=== PATIENT | male | born 1945 | race Caucasian/White ===

== ENCOUNTER 2022-07-07 14:23 | Inpatient (IN) | payer MEDICARE ==
[~2022-07-07] VITALS: Ht 165.1 cm; Wt 59.9 kg
--- NOTE | 2022-07-07 15:00 | NUR ---
Patient came in to the er sent by Dr. ardon for psych admission, danger to self hearing voices. On room air, breathing evenly and unlabored. Kept comfortbale, will continue to monitor accordingly.
[2022-07-07 15:44] LABS: BASOPHILS % (AUTO) 0.3 % (0.0-2.0); EOSINOPHILS % (AUTO) 0.2 % (0.0-6.0); HEMATOCRIT 45 % (39-51); LYMPHOCYTES # (AUTO) 0.8 K/uL (0.8-4.8); MEAN CORPUSCULAR HGB CONC 33 g/dl (31.0-36.0); MEAN CORPUSCULAR VOLUME 86 fL (80-96); MONOCYTES # (AUTO) 0.5 K/uL (0.1-1.30); MONOCYTES % (AUTO) 6.3 % (2.0-12.0); NEUTROPHILS % (AUTO) 83.2 % (43.0-81.0); PLATELET COUNT (AUTO) 247 K/uL (150-450); RED BLOOD CELL COUNT(AUTO) 5.24 MIL/uL (4.5-6.0); WHITE BLOOD COUNT (AUTO) 8.4 K/uL (4.3-11.0)
--- NOTE | 2022-07-07 15:52 | NUR ---
MOVE SHEET SUBMITTED.
[2022-07-07 15:56] LABS: CALCIUM, SERUM 9.3 mg/dL (8.5-10.1); CARBON DIOXIDE 27 mmol/L (21-32); CHLORIDE 105 mmol/L (98-107); CREATININE 1.1 mg/dL (0.6-1.3); GLUCOSE 130 mg/dL (74-106); POTASSIUM 4.4 mmol/L (3.5-5.1); SODIUM SERUM 138 mmol/L (136-145); UREA NITROGEN, BLOOD 15 mg/dL (7-18)
[2022-07-07 15:56] LABS: BILIRUBIN,URINE 1+ (NEGATIVE); COLOR,URINE YELLOW (YELLOW); LEUKOCYTE ESTERASE ,URINE NEGATIVE (NEGATIVE); NITRITE, URINE NEGATIVE (NEGATIVE); PROTEIN,URINE NEGATIVE (NEGATIVE); UGLUCOSE NEGATIVE (NEGATIVE); UROBILINOGEN,URINE 0.2 EU/dL (0.2)
[2022-07-07] MEDS ORDERED: OLANZAPINE 10 MG VIAL IM ONE ×2 (16:00→16:05)
[2022-07-07 16:07] LABS: ALANINE AMINOTRANSFERASE 37 U/L (12-78); ALBUMIN 4.1 g/dL (3.4-5.0); ALCOHOL, BLOOD < 3 mg/dL (0-0); ALKALINE PHOSPHATASE 76 U/L (46-116); ASPARTATE AMINOTRANSFERASE 22 U/L (15-37); BILIRUBIN,DIRECT 0.2 mg/dL (0.0-0.2); BILIRUBIN,TOTAL 0.4 mg/dL (0.2-1.0); TOTAL PROTEIN, SERUM 7.3 g/dL (6.4-8.2)
[2022-07-07 16:09] LABS: BACTERIA,URINE Rare /HPF (None Seen); RBC,URINE 0-2 /HPF (0-2); SQUAMOUS EPITHELIAL CELL,UR Few /HPF (None Seen); WBC,URINE 0-2 /HPF (0-3)
[2022-07-07 16:11] LABS: ACETAMINOPHEN 0 ug/ml (10-30)
--- NOTE | 2022-07-07 16:25 | NUR ---
COVID SWAB TAKEN
[2022-07-07] MEDS ORDERED: AMLO-212 PO (17:07)
[2022-07-07] MEDS ORDERED: LAMO200T10 PO (17:07)
[2022-07-07] MEDS ORDERED: LORA-259 PO (17:07)
--- NOTE | 2022-07-07 18:15 | NUR ---
BED GIVEN 212-B
--- NOTE | 2022-07-07 18:37 | NUR ---
MELISSA CALLED ON HER WAY.
[2022-07-07] MEDS ORDERED: LORAZEPAM 1 MG TABLET PO ONE (19:00)
[2022-07-07] MEDS ORDERED: LORAZEPAM 0.5 MG TABLET ONE (19:16)
--- NOTE | 2022-07-07 21:02 | NUR ---
REPORT GIVEN TO PATRICIA AT [facility]
--- NOTE | 2022-07-07 21:20 | NUR ---
TRANSFERRED TO 212
--- NOTE | 2022-07-07 21:30 | NUR ---
GPS ADMISSION NOTE, RECEIVED PATIENT FROM HOME / [facility] PATIENT ARRIVED ON THIS UNIT AT 2130 VIA STRETCHER WITH 2 RES HABILITATION ASSISTANT ESCORTS. PATIENT ADMITTED ON A 5150 HOLD FOR GD. PER HOLD PATIENT WAS BROUGHT IN TO [facility] BY HIS SON DUE TO THIS PATIENT HAVING INCREASED PARANOIA. PATIENT REPORTS THAT HE HAS BEEN PARANOID FOR TH LAST 10 DAYS. PATIENT THINKS HE IS GOING TO GET ARRESTED AND THAT MAKES HIM HAVE THOUGHTS OF DYING. PATIENT HAS NO VIABLE PLAN FOR SELF CARE AT THIS TIME. THE 5150 WAS REVIEWED AND THE DOCUMENTATION IN THE 5150 HOLD APPEARS TO REFLECT THE PRESENTATION OF THE PATIENT. UPON FACE TO FACE ASSESSMENT PATIENT IS NOTED TO BEING ANXIOUS, DISHEVELED, DISORGANIZED, PARANOID, COOPERATIVE, AND NEEDS REDIRECTION. PATIENT IS CURRENTLY LYING IN BED AWAKE, HAS NO S/S OR COMPLAINTS OF PAIN. PATIENT IS DISPLAYING NO S/S OF APPARENT DISTRESS. PATIENT BREATHING IS UNLABORED WITH EQUAL RISE AND FALL OF THE CHEST. PATIENT IS ALERT AND ORIENTATED X 3 ON ROOM AIR. PATIENT ASSISTED WITH TURING AND REPOSITIONING Q2HR AND PRN FOR COMFORT AND CIRCULATION. PATIENT HAS NO NEEDS AT THIS TIME. PATIENT DENIES SUICIDE IDEATIONS AND HOMICIDAL IDEATIONS AT THIS TIME. PATIENT SIGNED PAPER WORK. PATIENT ADVISED OF HIS HOLD AND PATIENT RIGHTS BOOKLET GIVEN. PATIENT IS UNDER THE PSYCHIATRIC CARE OF DR. SHAW AND THE MEDICAL CARE OF DR STEPHEN. PATIENT BELONGINGS WERE INVENTORIED AND CHECKED FOR CONTRABAND. ALL CONTRABAND REMOVED AND STORED IN PATIENT HALLWAY LOCKER. PATIENT ADVANCED DIRECTIVES PREFERENCE, IMMUNIZATIONS QUESTIONER, NECESSARY PAPERWORK COMPLETED. PATIENT ALLOWED SKIN ASSESSMENT. PATIENT ORIENTATED TO ROOM, FLOOR, AND STAFF WITH ALL QUESTIONS ANSWERED. PATIENT EDUCATED ON THE USE OF THE CALL RAYGOZA. PATIENT BED SIDE RAILS ARE UP X 2 FOR SAFETY. PATIENT BED IS LOCKED, LOW AND I WILL CONTINUE TO MONITOR THIS PATIENT Q 15 MIN WITH THE HELP OF STAFF TO MAINTAIN SAFETY.
[2022-07-07] MEDS ORDERED: ACETAMINOPHEN 325 MG TABLET PO PRN (22:30)
[2022-07-07] MEDS ORDERED: MAGNESIUM HYDROXIDE 30 ML UDC PO PRN (22:30)
[2022-07-07] MEDS ORDERED: BLOOD SUGAR DIAGNOSTIC 1 EACH STRIP IN ONE (22:30)
[2022-07-07] MEDS ORDERED: MAG HYDROX/AL HYDROX/SIMETH 30 ML UDC PO PRN (22:30)
[2022-07-07] MEDS: TEMAZEPAM 7.5 MG CAPSULE PO PRN (23:02)
--- NOTE | 2022-07-07 23:02 | NUR ---
GPS RN NOTE, PATIENT HAS A COMPLAINT OF NOT BEING ABLE TO SLEEP AND IS REQUESTING RESTORIL AT THIS TIME. PATIENT VITAL SIGNS ARE STABLE. GAVE RESTORIL 7.5MG PO HS PRN ORDERED. WILL REASSESS FOR INSOMNIA AND I WILL CONTINUE TO MONITOR THIS PATIENT WITH THE HELP OF STAFF.
[2022-07-08] MEDS: LORAZEPAM 0.5 MG TABLET PO PRN ×2 (01:33→23:17)
--- NOTE | 2022-07-08 01:33 | NUR ---
GPS RN NOTE, PATIENT HAS A COMPLAINT OF FEELING ANXIOUS AND IS REQUESTING ATIVAN AT THIS TIME. PATIENT VITAL SIGNS ARE STABLE. GAVE ATIVAN 0.5MG PO Q6HR PRN ORDERED. WILL REASSESS FOR ANXIETY AND I WILL CONTINUE TO MONITOR THIS PATIENT WITH THE HELP OF STAFF.
[2022-07-08 08:00] VITALS: BP 130/97
--- NOTE | 2022-07-08 08:33 | NUR ---
LUCILA Clinical Note: Pt placed on a 5150 hold for GD. Pt brought to the hospital because he has been paranoid at home. Patient currently resides at [address] [place] [id number]; ([phone]). Patient stated he is unsure if he will return back home. He might be staying at son's house. LUCILA will contact pt's son Gurjit ([phone]) to gather collateral and discuss treatment/discharge plan. LUCILA will work with the family, MD , and pt to help coordinate appropriate discharge.
--- NOTE | 2022-07-08 08:33 | NUR ---
LUCILA Initial Discharge Plan: Patient currently resides at [address] [place] [address]; ([phone]). Patient stated he is unsure if he will return back home. He might be staying at son's house. LUCILA will contact pt's son Gurjit ([phone]) to gather collateral and discuss treatment/discharge plan. LUCILA will work with the family, MD , and pt to help coordinate appropriate discharge.
--- NOTE | 2022-07-08 08:34 | NUR ---
Treatment Plan: Pt refused to sign and was suspicious.
[2022-07-08] MEDS: AMLODIPINE BESYLATE 5 MG TABLET PO SCH (08:37)
--- NOTE | 2022-07-08 10:57 | NUR ---
Social Work Note/Substance Abuse Intervention: Patient was provided with a brief substance abuse intervention and referred to [facility] ([phone]), [facility] ([phone]), and [facility] ([phone]) for drinking alcohol.
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
--- NOTE | 2022-07-08 12:05 | NUR ---
RN Notes: Received pt. asleep in bed, breathing is even and unlabored. Ate 100% for breakfast and compliant on med. Pt. is quiet and isolates in the room. Encouraged to verbalize feelings and motivated to attend group activity. Pt. isolates in the room and no social interactions. Needs attended and will continue to monitor for safety.
[2022-07-08] MEDS: LamoTRIgine 100 MG TABLET PO SCH (12:25)
[2022-07-08] MEDS: OLANZAPINE 2.5 MG TABLET PO SCH ×2 (12:33→17:00)
[2022-07-08 16:00] VITALS: BP 112/71
--- NOTE | 2022-07-08 19:57 | NUR ---
RN NOTES ; RECEIVED PATIENT IN BED RESTING COMFORTABLY. A/OX3. NO S/SX OF ACUTE DISTRESS NOTED. PATIENT IS CALM UPON APPROACH, COOPERATIVE TO CARE, GUARDED, ISOLATIVE, SAFETY PRECAUTIONS PROVIDED, VERBALIZATION OF FEELINGS ENCOURAGED AND MOTIVATED TO ATTEND GROUP ACTIVITY ,SAFETY PRECAUTIONS MAINTAINED. WILL CONTINUE TO MONITOR Q15MIN ROUNDS FOR SAFETY AND BEHAVIOR.
[2022-07-08 20:00] VITALS: BP 130/96
[2022-07-08] MEDS ORDERED: OLANZAPINE 5 MG TABLET PO SCH (22:00)
--- NOTE | 2022-07-08 23:20 | NUR ---
RN NOTES: ANXIETY PT. C/O FEELING ANXIOUS,RESTLESS ,PRN ATIVAN 0.5 MG PO GIVEN PER PT. REQUEST, WILL CONTINUE TO MONITOR.
--- NOTE | 2022-07-09 05:27 | NUR ---
RN NOTES: PT. RESTING IN HIS ROOM AND 7 HOURS OF SLEEP, NO ACUTE DISTRESS NOTED, ATIVAN WAS AFFECTIVE , ENCOURAGED PT. TO VERBALIZED ANY FEELING OR CONCERN, ALL NEEDS ATTENDED AND ANTICIPATED WILL CONTINUE TO MONITOR.
[2022-07-09 08:00] VITALS: BP 151/90
[2022-07-09] MEDS: LamoTRIgine 100 MG TABLET PO SCH (08:07)
[2022-07-09] MEDS: OLANZAPINE 2.5 MG TABLET PO SCH ×2 (08:07→16:32)
[2022-07-09] MEDS: AMLODIPINE BESYLATE 5 MG TABLET PO SCH (08:08)
--- NOTE | 2022-07-09 11:01 | NUR ---
Dr. Poole and the mortgage underwriter spoke to the pt. the he is suicidal and will do any means. Pt. was encouraged to ask the staffs for feel like harming himself and he agree. Dr. Poole ordered line of sight.
[2022-07-09 16:00] VITALS: BP 138/94
--- NOTE | 2022-07-09 20:10 | NUR ---
ARCHAEOLOGIST NOTES: PATIENT'S SON CRESENCIO AT BEDSIDE. PATIENT CALMLY TALKING TO HIM. ALL SAFETY MEASURES IN PLACE. WILL CONTINUE TO MONITOR FOR SAFETY AND BEHAVIOR.
[2022-07-09 20:40] VITALS: BP 160/100
--- NOTE | 2022-07-09 21:00 | NUR ---
FRONT DESK SPECIALIST NOTES: PATIENT STATED THAT HE HAS SUICIDAL IDEATION BUT DOES NOT HAVE PLANS TO ACT ON IT. ENCOURAGED PATIENT TO VERBALIZE HIS FEELINGS AND APPROACH STAFF WHEN HE FEELS LIKE HARMING HIMSELF. PATIENT AGREES TO DO SO. ALL SAFETY MEASURES IN PLACE. WILL CONTINUE MONITOR Q15 MINS FOR SAFETY AND BEHAVIOR.
[2022-07-09] MEDS: OLANZAPINE 5 MG TABLET PO SCH (21:41)
[2022-07-09] MEDS: LORAZEPAM 0.5 MG TABLET PO PRN (23:14)
--- NOTE | 2022-07-10 00:15 | NUR ---
RESERVATIONS SALES SUPERVISOR NOTES: GIVEN ATIVAN 0.5 MG PER PATIENTS REQUEST FOR ANXIETY. EFFECTIVE. PATIENT SLEEPING AT THIS TIME. CALM. EASILY AROUSABLE. WILL CONTINUE TO MONITOR FOR SAFETY AND BEHAVIOR.
--- NOTE | 2022-07-10 06:42 | NUR ---
CLINICAL OB NOTES: PATIENT SLEEPING IN BED. EASILY AROUSABLE. BREATHING EVEN AND UNLABORED. NO ACUTE DISTRESS NOTED. A/O X3. PATIENT QUIET AND REMAINED IN HIS ROOM ALL NIGHT. SLEPT WELL. ENCOURAGED TO VERBALIZE FEELINGS AND EMOTIONS. ALL NEEDS ANTICIPATED AND ATTENDED. MONITORED [id number] FOR SAFETY AND BEHAVIOR.
[2022-07-10 07:13] LABS: BASOPHILS % (AUTO) 0.5 % (0.0-2.0); EOSINOPHILS % (AUTO) 1.2 % (0.0-6.0); HEMATOCRIT 43 % (39-51); HEMOGLOBIN 14.3 g/dL (13.5-17.5); LYMPHOCYTES # (AUTO) 1.3 K/uL (0.8-4.8); LYMPHOCYTES % (AUTO) 18.6 % (20.0-44.0); MEAN CORPUSCULAR HGB CONC 34 g/dl (31.0-36.0); MEAN CORPUSCULAR VOLUME 86 fL (80-96); MONOCYTES # (AUTO) 0.5 K/uL (0.1-1.30); MONOCYTES % (AUTO) 7.5 % (2.0-12.0); NEUTROPHILS # (AUTO) 5.2 K/uL (1.8-8.9); NEUTROPHILS % (AUTO) 72.2 % (43.0-81.0); PLATELET COUNT (AUTO) 239 K/uL (150-450); RED BLOOD CELL COUNT(AUTO) 4.98 MIL/uL (4.5-6.0); WHITE BLOOD COUNT (AUTO) 7.2 K/uL (4.3-11.0)
[2022-07-10 07:51] LABS: CREATININE 1.2 mg/dL (0.6-1.3); POTASSIUM 4.2 mmol/L (3.5-5.1)
[2022-07-10 08:00] VITALS: BP 120/94
[2022-07-10] MEDS: AMLODIPINE BESYLATE 5 MG TABLET PO SCH (08:12)
[2022-07-10] MEDS: LamoTRIgine 100 MG TABLET PO SCH (08:12)
[2022-07-10] MEDS: OLANZAPINE 2.5 MG TABLET PO SCH ×2 (08:12→16:08)
--- NOTE | 2022-07-10 09:08 | NUR ---
RN Notes: Received pt. awake in the room, responsive to staffs, suspicious, quiet and with depressed mood. Pt. ate 25% for breakfast and compliant on meds. Pt. stated he is suicidal but no specific plan at this time and said he is depressed. Pt. was encouraged to verbalize feelings and encouraged to call staffs if feels like hurting himself and agreed. Pt. was monitored frequently for safety and needs attended.
[2022-07-10 16:00] VITALS: BP 116/86
--- NOTE | 2022-07-10 19:20 | NUR ---
GPS RN NOTES RECEIVED LAYING OM HIS BED INSIDE THE ROOM.FAMILY MEMBERS AT BEDSIDE.DENIES SUICIDAL IDEATION.CLOSE MONITORING INITIATED.CALM ABLE TO VERBALIZED NEEDS.AMBULATE WITH STEADY GAIT.MED COMPLIANT.WILL CONTINUE TO MONITOR BEHAVIOR AND MANAGE ACCORDINGLY.
[2022-07-10 20:00] VITALS: BP 128/91
[2022-07-10] MEDS: OLANZAPINE 5 MG TABLET PO SCH (20:48)
--- NOTE | 2022-07-11 | NUR ---
GPS RN NOTES AWAKE,OFFERED SLEEPING PILL BUT REFUSED,COMMENTED " IM OKAY "
[2022-07-11] MEDS: LORAZEPAM 0.5 MG TABLET PO PRN ×3 (06:07→21:23)
--- NOTE | 2022-07-11 06:07 | NUR ---
GPS RN NOTES AWAKE,WANDERING,APPEARS ANXIOUS,ATIVAN 0.5MG PO GIVEN ORDERED.ENCOURAGED TO STAY IN HIS ROOM FOR SAFETY
[2022-07-11] MEDS: OLANZAPINE 2.5 MG TABLET PO SCH ×2 (07:50→17:24)
[2022-07-11] MEDS: AMLODIPINE BESYLATE 5 MG TABLET PO SCH (07:50)
[2022-07-11] MEDS: LamoTRIgine 100 MG TABLET PO SCH (07:50)
[2022-07-11 08:00] VITALS: BP 124/86
[2022-07-11 16:00] VITALS: BP 101/75
[2022-07-11 20:20] VITALS: BP 115/77
[2022-07-11] MEDS: OLANZAPINE 5 MG TABLET PO SCH (21:22)
[2022-07-12] MEDS: TEMAZEPAM 7.5 MG CAPSULE PO PRN ×2 (00:11→21:24)
[2022-07-12 08:00] VITALS: BP 143/78
[2022-07-12] MEDS: AMLODIPINE BESYLATE 5 MG TABLET PO SCH (09:00)
[2022-07-12] MEDS: OLANZAPINE 2.5 MG TABLET PO SCH (09:00)
[2022-07-12] MEDS: LamoTRIgine 100 MG TABLET PO SCH (09:00)
--- NOTE | 2022-07-12 12:54 | NUR ---
SNF Referral: SW sent clinicals to [facility] ([phone]) for placement. SW sent H & P, progress notes, and medication list.
[2022-07-12] MEDS: risperiDONE-M 0.5 MG TAB.RAPDIS PO SCH ×2 (12:59→16:17)
--- NOTE | 2022-07-12 14:19 | NUR ---
RN-CO: FOLLOWED UP CT W/O CONTRAST.
--- NOTE | 2022-07-12 15:34 | NUR ---
RN-CO: OUT FOR CT W/O CONTRAST W/ DIGITAL DIRECTOR.
[2022-07-12 16:00] VITALS: BP 130/89
[2022-07-12 20:41] VITALS: BP 153/89
[2022-07-12] MEDS: OLANZAPINE 5 MG TABLET PO SCH (21:23)
--- NOTE | 2022-07-12 21:26 | NUR ---
Pt unable to sleep. C/O insomnia. Least restrictive measures ineffective. Restoril 7.5 mg po prn given as ordered. Will continue to monitor.
--- NOTE | 2022-07-12 22:48 | NUR ---
Post 1 hr Restoril effective. Pt asleep in bed easy to arouse. Bed at low position and bed alarm on. Frequent visual check done for safety. Will continue to monitor. Will endorse to next shift.
--- NOTE | 2022-07-13 07:25 | NUR ---
GPS RN OPENING NOTE RECEIVED PT ASLEEP IN BED, EASILY AROUSED. PT IS A/O X3, ABLE TO MAKE NEEDS KNOWN. PT ON ROOM AIR, TOLERATING WELL. NO SOB NOTED. NOT IN ANY SIGN OF RESPIRATORY DISTRESS. PT IS CALM WITH NO EPISODES OF SUICIDAL THOUGHTS AT THIS TIME. SAFETY MEASURES IN PLACE: BED IN LOWEST AND LOCKED POSITION, SIDE RAILS UP, BED ALARM ON, AND CALL LIGHT WITHIN EASY REACH. WILL CONTINUE TO MONITOR PT.
[2022-07-13 08:00] VITALS: BP 129/85
[2022-07-13] MEDS: LamoTRIgine 100 MG TABLET PO SCH ×2 (08:41→08:52)
[2022-07-13] MEDS: risperiDONE-M 0.5 MG TAB.RAPDIS PO SCH ×5 (08:41→17:00)
[2022-07-13] MEDS: AMLODIPINE BESYLATE 5 MG TABLET PO SCH ×2 (08:42→08:52)
--- NOTE | 2022-07-13 08:54 | NUR ---
RN NOTE PT REFUSED ALL MEDICATIONS SCHEDULED AT 0900. PT AGREE TO TAKE THE MEDICATIONS AT FIRST BUT WHEN PREPARED MEDICATIONS AND ATTEMPTED TO GIVE, PT CHANGED HIS MIND AND REFUSED ALL MEDICATIONS. PER PT, "I JUST DON'T WANT TO TAKE IT ANYMORE".
--- NOTE | 2022-07-13 13:41 | NUR ---
RN NOTE PT REFUSED RISPERDAL-M SCHEDULED AT 0. PT AGREE TO TAKE THE MEDICATIONS AT FIRST BUT WHEN PREPARED MEDICATIONS AND ATTEMPTED TO GIVE, PT CHANGED HIS MIND AND REFUSED ALL MEDICATIONS. PER PT, "I JUST DON'T WANT TO TAKE IT ANYMORE". Addendum: 07/13/22 at 1342 by PAVAN SWEENEY RN DELETE NOTE ENTRY
--- NOTE | 2022-07-13 13:42 | NUR ---
RN NOTE PT REFUSED HIS RISPERDAL-M MEDICATION SCHEDULED AT 1330. EXPLAINED RISK AND BENEFITS, PT STILL REFUSED. PT STATE, "I'M NOT GOING TO TAKE THAT".
--- NOTE | 2022-07-13 13:58 | NUR ---
Court Notification: LUCILA contacted pt's son Gurjit ([phone]) for 0940 hearing.
--- NOTE | 2022-07-13 13:59 | NUR ---
Court Hearing: Patient's court hearing for 3190 was today and it was upheld for GD.
--- NOTE | 2022-07-13 14:01 | NUR ---
SNF Contact: SW received a call from Pamela hennessy from [facility] ([phone]) and stated pt is accepted.
[2022-07-13 16:36] VITALS: BP 164/90
--- NOTE | 2022-07-13 17:04 | NUR ---
RN NOTE PT REFUSED HIS RISPERDAL-M MEDICATION SCHEDULED AT 1700. EXPLAINED RISK AND BENEFITS, PT STILL REFUSED. PT STATED, "I HAVE TO MUCH DRUGS IN MY SYSTEM".
[2022-07-13 20:48] VITALS: BP 150/98
[2022-07-13] MEDS: OLANZAPINE 5 MG TABLET PO SCH (21:09)
[2022-07-13] MEDS: TEMAZEPAM 7.5 MG CAPSULE PO PRN (21:14)
[2022-07-14 08:00] VITALS: BP 130/98
[2022-07-14] MEDS: risperiDONE-M 0.5 MG TAB.RAPDIS PO SCH ×2 (09:00→16:46)
[2022-07-14] MEDS: LamoTRIgine 100 MG TABLET PO SCH (09:00)
[2022-07-14] MEDS: AMLODIPINE BESYLATE 5 MG TABLET PO SCH (09:00)
--- NOTE | 2022-07-14 09:00 | NUR ---
Patient alert ,verbally responsive ,poor insight ,poor judgment easily irritable and anxious will continue to monitor for safety q15 minutes.Patient refused all Meds ,encourage still refused will continue to monitor for safety ,patient on line of sight .
--- NOTE | 2022-07-14 09:00 | NUR ---
RN- NOTES PATIENT REFUSED ALL 0900 MEDICATIONS. EDUCATED ON RISKS AND BENEFITS. PATIENT STATED, "NOTHING I TAKE IS GOING TO HELP ME AND I JUST CAN'T DO IT." WILL CONTINUE TO MONITOR FOR SAFETY AND BEHAVIOR.
[2022-07-14] MEDS ORDERED: OLANZAPINE 10 MG VIAL IM STA (14:04)
--- NOTE | 2022-07-14 14:09 | NUR ---
Patient pacing ,paranoid and suspicious . notified with new order Zyprexa 10mg IM X1 Stat .Patient voluntarily accept injection .
[2022-07-14 16:00] VITALS: BP 112/80
--- NOTE | 2022-07-14 18:51 | NUR ---
RN-NOTES PATIENT RECEIVED ASLEEP IN BED, BREATHING EVEN AND UNLABORED WITH NO S/S OF DISTRESS. PATIENT IS GUARDED, ANXIOUS, DEPRESSED, BUT COOPERATIVE WITH STAFF. PATIENT AGREED TO INJECTION PER MD ORDERS AND STATES, "I DON'T FEEL GOOD AT ALL AND I THINK NOTHING WILL HELP ME FEEL BETTER THAT THIS POINT." PATIENT VERBALIZES FEELINGS OF SUICIDAL IDEATION AND IS ON LINE OF SIGHT ORDERS. PATIENT REFUSED ALL MEDICATIONS. WILL CONTINUE TO MONITOR FOR SAFETY AND BEHAVIOR.
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
--- NOTE | 2022-07-14 19:20 | NUR ---
RN notes Code leone is called Per Charge nurse YOSSI Woo.
[2022-07-14] MEDS ORDERED: LORAZEPAM INJ 2 MG/ML VIAL IM STA (19:21)
[2022-07-14] MEDS ORDERED: HALOPERIDOL LACTATE INJ 5 MG/ML VIAL IM STA (19:21)
[2022-07-14] MEDS ORDERED: BENZTROPINE MESYLATE (2MG/2ML) 2 MG/2 ML AMPUL IM STA (19:21)
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
[2022-07-14 20:40] VITALS: BP 110/67
[2022-07-14 21:00] VITALS: BP 129/95
--- NOTE | 2022-07-14 21:00 | NUR ---
RN nurse Charge nurse YOSSI Woo ordered to release the restraints. Pt is released from the restraints and back to Pt's room with a sitter. No S/S of distress noted. VS is stable.
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
[2022-07-14] MEDS: OLANZAPINE 5 MG TABLET PO SCH (21:11)
--- NOTE | 2022-07-14 21:16 | NUR ---
RN note: 20:00: Discontinued 4 point restraints.Patient contracted for safety. Dr Poole was notified.Patient still on 1:1 sitter.We will continue to monitor q15 min rounds for safety. Addendum: 07/14/22 at 2118 by SUSIE SOTO RN Amended: Links added. Addendum: 07/14/22 at 2127 by SUSIE SOTO RN 21:00 Discontinued 4 point restraints at 21:00.
[2022-07-14] MEDS: TEMAZEPAM 7.5 MG CAPSULE PO PRN (22:54)
--- NOTE | 2022-07-14 22:57 | NUR ---
RN notes Pt is requesting a sleep pill. administered restoril/po/prn as ordered for sleeping. Pt is calm, and follows directions. safety precautions is maintained. sitter at the bedside. will continue to monitor.
[2022-07-15] VITALS: BP 110/67
--- NOTE | 2022-07-15 02:04 | NUR ---
RN notes Trying to document behavior incident report several times and unable to save the form. Tried three different computers but unsuccesful. Charge nurse YOSSI Woo is aware and informed.
[2022-07-15 08:00] VITALS: BP 129/77
[2022-07-15] MEDS: AMLODIPINE BESYLATE 5 MG TABLET PO SCH ×3 (09:00→14:00)
[2022-07-15] MEDS: risperiDONE-M 0.5 MG TAB.RAPDIS PO SCH ×4 (09:00→20:24)
[2022-07-15] MEDS: LamoTRIgine 100 MG TABLET PO SCH ×2 (09:00→09:31)
--- NOTE | 2022-07-15 09:30 | NUR ---
SKIVER OPERATOR NOTE PATIENT REFUSED 0900 MEDS. PATIENT AT FIRST STATED HE WOULD TAKE THE MEDICATION. MEDICATION WAS BROUGHT TO PATIENT. HE THEN STATED HE DIDNT FEEL COMFORTABLE TAKING THAT MEDICATION AND WAS NOT GOING TO TAKE IT. CHARGE NURSE JAQUELIN NOTIFIED.
[2022-07-15] MEDS: ENSURE ENLIVE CHOC 237 ML CAN PO SCH (09:31)
[2022-07-15] MEDS: LITHIUM CARBONATE 150 MG CAPSULE PO SCH ×2 (12:30→20:24)
--- NOTE | 2022-07-15 14:00 | NUR ---
MANAGER INSTRUMENTATION NOTE 1230 MEDS LITHIUM CARBONATE, RISPERDAL HELD PENDING EKG, PER DR. SHAW.
--- NOTE | 2022-07-15 14:26 | NUR ---
[facility] Hearing scheduled tomorrow (06/18/22) at 9:30. Dr. Poole made aware.
[2022-07-15 16:00] VITALS: BP 103/78
[2022-07-15] MEDS ORDERED: HALOPERIDOL LACTATE INJ 5 MG/ML VIAL IM ONE (17:00)
[2022-07-15] MEDS ORDERED: BENZTROPINE MESYLATE (2MG/2ML) 2 MG/2 ML AMPUL IM ONE (17:00)
[2022-07-15] MEDS ORDERED: LORAZEPAM INJ 2 MG/ML VIAL IM ONE (17:00)
--- NOTE | 2022-07-15 17:00 | NUR ---
Staff reported that pt. is walking in the hallway naked and staffs redirected and put on the gown and pt. was cooperative. pt. said he is hearing voices and suicidal with no specific plan.s Pt. agreed for an injection medications. Dr. Poole made aware and ordered Haldol 10 mg IM, Ativan 2 mg IM and Cogentin 1 mg IM.
--- NOTE | 2022-07-15 19:20 | NUR ---
RN notes Received Pt from morning nurse. Pt is ambulating in the room with a steady gait. Pt is alert and orientedX3, calm and follows directions. Pt is 1:1. No SOB. No S/S of distress noted. Pt denies SI/HI at this time. Reality orientation is provided. snack is given and provided. Safety precautions is maintained. Will continue to monitor Q 15 mins checks for safety and behavior.
--- NOTE | 2022-07-15 19:30 | NUR ---
RN nurse Pt is sleeping in the bed comfortably. 1:1. Safety precautions is maintained. Will continue to monitor.
--- NOTE | 2022-07-15 19:58 | NUR ---
RN notes Pt is awake, eating snacks and reading. No SI/HI at this time. Pt is calm and directable.
[2022-07-15 20:19] VITALS: BP 113/78
--- NOTE | 2022-07-15 20:29 | NUR ---
RN notes Pt took pm meds as ordered without any difficulties. Pt is eating snacks.
[2022-07-15 20:33] VITALS: BP 113/78
--- NOTE | 2022-07-15 20:35 | NUR ---
RN notes Pt is back to bed.
[2022-07-15] MEDS: TEMAZEPAM 7.5 MG CAPSULE PO PRN (23:32)
--- NOTE | 2022-07-15 23:35 | NUR ---
RN notes Pt is having insomnia. Pt is requesting for a sleeping pill. administered restoril/1 tab/po/prn as ordered for sleeping. safety precautions is maintained. will continue to monitor.
--- NOTE | 2022-07-16 | NUR ---
RN notes Pt is eating snacks.
[2022-07-16] MEDS: LORAZEPAM 0.5 MG TABLET PO PRN ×3 (00:35→17:34)
--- NOTE | 2022-07-16 00:39 | NUR ---
RN notes Pt is feeling anxious, and restless. administered ativan/1 tab/po as ordered. Safety precautions is maintiained. will continue to monitor.
--- NOTE | 2022-07-16 01:00 | NUR ---
RN notes Pt is eating snacks, cleaning his room and talking to himself. Pt denies SI/HI. Pt is calm and directable.
--- NOTE | 2022-07-16 01:20 | NUR ---
RN notes Pt is asleep.
--- NOTE | 2022-07-16 06:59 | NUR ---
RN closing notes Pt is resting in bed comfortably. Pt is alert and orientedX3, calm, cooperative with plan of care and follows directions. Pt is 1:1 sitter. On room air. No SOB. No S/S of distress noted. VS is stable. Pt denies SI/HI at this time. Reality orientation provided. Routine meds were given as ordered. Kept Pt clean, dry and comfortable. All needs met and attended. Safety precautions is maintained. Will endorse to am nurse for JOSE ENRIQUE.
[2022-07-16 08:00] VITALS: BP 132/89
[2022-07-16] MEDS: LITHIUM CARBONATE 150 MG CAPSULE PO SCH ×2 (08:54→20:25)
[2022-07-16] MEDS: risperiDONE-M 0.5 MG TAB.RAPDIS PO SCH ×2 (08:55→20:24)
[2022-07-16] MEDS: ENSURE ENLIVE CHOC 237 ML CAN PO SCH (09:02)
--- NOTE | 2022-07-16 10:00 | NUR ---
NURSE NOTE: PT INFORMED IRENE ALBA THAT HE FEELS DIZZY. IRENE ALBA ORDERED ORTHOSTATIC BLOOD PRESSURE. LAYING-BP 128/73, P 87. SITTING-BP 117/75, P 94. STANDING-BP 96/68, P 108. IRENE ALBA NOTIFIED. ENCOURAGED FLUID INTAKE AND WILL CHECK AGAIN POST DINNER ORDERED.
--- NOTE | 2022-07-16 10:10 | NUR ---
NURSE NOTE: PT STATED THAT HE IS FEELING ANXIOUS AT THIS TIME. REQUESTED ATIVAN PO. ATIVAN ADMINISTERED ORDERED. PT PENG WELL. WILL CONT TO MONITOR.
[2022-07-16] MEDS ORDERED: OLANZAPINE 10 MG VIAL IM PRN (11:00)
--- NOTE | 2022-07-16 11:15 | NUR ---
NURSE NOTE: PT STATED HE IS FEELING BETTER. PER PT ANXIETY HAS DECREASED. ATIVAN EFFECTIVE AT THIS TIME. WILL CONT TO MONITOR.
[2022-07-16] MEDS ORDERED: risperiDONE-M 0.5 MG TAB.RAPDIS PO ONE (11:30)
[2022-07-16 16:00] VITALS: BP 125/79
--- NOTE | 2022-07-16 16:01 | NUR ---
NURSE NOTE: PT SAYS THAT HE HASN'T BEEN ABLE TO HAVE A BM IN DAYS. OFFERED MILK OF MAG AT THIS TIME. PT STATED HE WOULD LIKE SOME. MILK OF MAG ADMIN ORDERED. PT PENG WELL. WILL CONT TO MONITOR.
--- NOTE | 2022-07-16 17:35 | NUR ---
NURSE NOTE: PT FEELING ANXIOUS AT THIS TIME. REQUESTED ATIVAN. ATIVAN PO ADMIN ORDERED. PT PENG WELL. WILL CONT TO MONITOR.
--- NOTE | 2022-07-16 17:50 | NUR ---
NURSE NOTE: ORTHOSTATIC PRESSURE CHECKED AT THIS TIME ORDERED. LAYING BP-140/90, P-83. SITTING BP-136/95, P-89. STANDING BP-129/92, P-95. METALLOGRAPHIC TECHNICIAN ALBA NOTIFIED. ORDERED TO CONT ENCOURAGING FLUIDS. WILL ENDORSE TO PM SHIFT.
--- NOTE | 2022-07-16 19:00 | NUR ---
RN notes Pt is resting in bed comfortably. Pt is alert and orientedX3, calm, follows directions and med compliant. Pt is 1:1 with a sitter. On room air. No SOB. No S/S of distress noted. VS is stable. Snacks is given and provided. Reality orientation is provided. Pt denies SI/HI at this time. Safety precautions is maintained. Will continue to monitor Q 15 mins checks for safety and behavior.
[2022-07-16 20:00] VITALS: BP 138/70
[2022-07-16 20:46] VITALS: BP 138/70
--- NOTE | 2022-07-16 20:50 | NUR ---
RN notes Pt is taking pm meds without any difficulties.
[2022-07-16 21:00] VITALS: BP_SYST 128; BP_SYST 134; BP_DIAS 81
--- NOTE | 2022-07-16 21:00 | NUR ---
RN notes Orthostatic BP is taken.
--- NOTE | 2022-07-16 21:02 | NUR ---
RN notes Orthostatic BP as follows : Supine - BP 138/70, HR 88. Standing - BP 128/81, HR 104. Sitting BP 134/81, HR 98.
--- NOTE | 2022-07-17 | NUR ---
RN notes Pt is asleep comfortably. No S/S of distress noted. Sitter at the bedside. Will continue to monitor.
--- NOTE | 2022-07-17 07:15 | NUR ---
PBX MECHANIC opening note Received patient laying in bed. Pt is alert and orientedX3, calm, follows directions. Pt is 1:1 with a sitter. On room air. No SOB. No S/S of distress noted. VS is stable. Safety precautions is maintained. Will continue to monitor Q 15 mins checks for safety and behavior.
[2022-07-17 08:00] VITALS: BP 154/83
[2022-07-17] MEDS: risperiDONE-M 0.5 MG TAB.RAPDIS PO SCH ×2 (08:32→21:24)
[2022-07-17] MEDS: ENSURE ENLIVE CHOC 237 ML CAN PO SCH (08:32)
[2022-07-17] MEDS: AMLODIPINE BESYLATE 5 MG TABLET PO SCH (08:33)
[2022-07-17] MEDS: LITHIUM CARBONATE 150 MG CAPSULE PO SCH ×2 (08:33→21:25)
--- NOTE | 2022-07-17 09:00 | NUR ---
ENTERPRISE ACCOUNT EXECUTIVE note Patient took morning meds without issue.
--- NOTE | 2022-07-17 12:41 | NUR ---
Dr. Giordano in the unit and seen pt. and ordered to d/c 1:1. Pt. is calm and cooperative at this time. No distress and no agitation noted.
--- NOTE | 2022-07-17 13:48 | NUR ---
FINE CHEMICALS OPERATOR NOTE ORTHOSTATIC PRESSURE CHECKED. LAYING BP-157/102, P-89. SITTING BP-141/91, P-89. STANDING BP-129/92, P-95. IRENE ALBA NOTIFIED. ORDERED TO CONT ENCOURAGING FLUIDS. WILL ENDORSE TO PM SHIFT. Addendum: 07/17/22 at 1352 by DULCE SOLIS RN CORRECT NOTE *ORTHOSTATIC PRESSURE LAYING BP-157/102, P-89. SITTING BP-141/91, P-98. STANDING BP-154/99, P-93. WILL NOTIFY IRENE ALBA
[2022-07-17 16:00] VITALS: BP 151/100
--- NOTE | 2022-07-17 17:20 | NUR ---
LETTERPRESS SETTER NOTE PATIENT HAD A URINARY ACCIDENT AND WET HIMSELF AND THE BED. PATIENT TOOK SHOWER AND CHANGED INTO GOWN. PATIENTS BED SANITIZED, BED SHEETS/LINEN REPLACED. PATIENT IS NOW EATING DINNER.
--- NOTE | 2022-07-17 19:30 | NUR ---
RN notes Received Pt from morning nurse. Pt is sleeping in bed comfortably. Pt is alert and orientedX3, depressed, calm, quite and follows directions. Pt is able to make needs known. No SOB. No S/S of distress noted. Pt denies SI/HI at this time. Reality orientation is provided. Orthostatic BP is taken. Safety precautions is maintained. Will continue to monitor Q 15 mins checks for safety and behavior.
[2022-07-17 20:00] VITALS: BP_SYST 155; BP_SYST 158; BP_SYST 159; BP_DIAS 101; BP_DIAS 102; BP_DIAS 108
--- NOTE | 2022-07-17 20:10 | NUR ---
RN notes Increase oral intake per MD ordered. Pt drank fluids without any difficulties. Orthostatic BP is taken. Supine : 155/108 sitting : 158/102 standing : 159/101
[2022-07-17 21:24] VITALS: BP 159/101
--- NOTE | 2022-07-17 22:00 | NUR ---
RN notes Pt is awake. Assist Pt to the restroom. Med compliant.
--- NOTE | 2022-07-17 22:05 | NUR ---
RN notes Pt is asleep comfortably.
[2022-07-18 08:00] VITALS: BP 160/105
[2022-07-18] MEDS: ENSURE ENLIVE CHOC 237 ML CAN PO SCH (09:16)
[2022-07-18] MEDS: AMLODIPINE BESYLATE 5 MG TABLET PO SCH (09:16)
[2022-07-18] MEDS: LITHIUM CARBONATE 150 MG CAPSULE PO SCH ×2 (09:16→22:56)
[2022-07-18] MEDS: risperiDONE-M 0.5 MG TAB.RAPDIS PO SCH ×2 (11:14→22:56)
[2022-07-18] MEDS: MECLIZINE HCL 12.5 MG TABLET PO PRN (12:45)
[2022-07-18 16:00] VITALS: BP 133/82
--- NOTE | 2022-07-18 18:27 | NUR ---
A R COLLECTIONS REP Note Patient mood has improved, patient engaging in conversation first. Patient stated that he did not have any suicidal thoughts at this time, and that he was starting to get hungry. Informed Patient dinner was being passed out and he would receive tray. Patient ate dinner and also had snacks around 1400hrs. Patient was previously declining to eat if not encouraged. Patient attended activity room and interacted with other patients for some time.
[2022-07-18 20:35] VITALS: BP 113/83
[2022-07-18] MEDS ORDERED: LITHIUM CARBONATE 150 MG CAPSULE ONE (22:21)
--- NOTE | 2022-07-18 22:57 | NUR ---
RN NOTE LATE MEDICATION ADMINISTRATION D/T MED NOT BEING PRESENT/IN-STOCK. MED RECEIVED STK-MED FROM PRANAV WASHINGTON. PATIENT O/W STABLE; WILL CONTINUE TO MONITOR PATIENT.
--- NOTE | 2022-07-19 06:30 | NUR ---
RN NOTE PAIN NOTIFIED THIS RN THAT HE HAD HAD CHEST PAIN EARLIER IN THE NIGHT BUT JUST NOW REMEMBERED TO TELL ME. PATIENT STATED CHEST PAIN WAS ON RIGHT SIDE OF CHEST, 9/10, AND NON-RADIATING. PAIN STATED NO PAIN CURRENTLY. PATIENT IS NON-DIAPHORETIC, DENIES HEADACHE, BUT HAS MILD DIZZINESS. ON-CALL, LUCIO CONTACTED. ORDER GIVEN FOR STAT EKG. PATIENT O/W STABLE; WILL CONTINUE TO MONITOR PATIENT.
--- NOTE | 2022-07-19 07:02 | NUR ---
RN NOTE PATIENT'S EKG IMAGE SENT TO ON-[facility]. SR 70s. ON-CALL STATED NO NEW ORDERS. PATIENT STABLE; WILL CONTINUE TO MONITOR PATIENT.
[2022-07-19 08:00] VITALS: BP 127/68
[2022-07-19] MEDS: risperiDONE-M 0.5 MG TAB.RAPDIS PO SCH (08:24)
[2022-07-19] MEDS: LITHIUM CARBONATE 150 MG CAPSULE PO SCH ×2 (08:25→21:44)
[2022-07-19] MEDS: AMLODIPINE BESYLATE 5 MG TABLET PO SCH (08:26)
[2022-07-19] MEDS: ENSURE ENLIVE CHOC 237 ML CAN PO SCH (09:03)
[2022-07-19 11:02] LABS: BASOPHILS % (AUTO) 0.3 % (0.0-2.0); EOSINOPHILS % (AUTO) 0.1 % (0.0-6.0); HEMATOCRIT 41 % (39-51); HEMOGLOBIN 13.3 g/dL (13.5-17.5); LYMPHOCYTES # (AUTO) 0.6 K/uL (0.8-4.8); LYMPHOCYTES % (AUTO) 7.9 % (20.0-44.0); MEAN CORPUSCULAR HGB CONC 33 g/dl (31.0-36.0); MEAN CORPUSCULAR VOLUME 87 fL (80-96); MONOCYTES # (AUTO) 0.4 K/uL (0.1-1.30); MONOCYTES % (AUTO) 5.5 % (2.0-12.0); NEUTROPHILS # (AUTO) 6.9 K/uL (1.8-8.9); NEUTROPHILS % (AUTO) 86.2 % (43.0-81.0); PLATELET COUNT (AUTO) 207 K/uL (150-450); RED BLOOD CELL COUNT(AUTO) 4.67 MIL/uL (4.5-6.0)
[2022-07-19 11:10] LABS: MAGNESIUM 2.4 mg/dL (1.8-2.4); POTASSIUM 4.7 mmol/L (3.5-5.1)
[2022-07-19 16:00] VITALS: BP 128/87
--- NOTE | 2022-07-19 17:30 | NUR ---
RN NOTES: CONSENT OBTAINED FOR CT ANGIO, RN ADDRESSED QUESTIONS/CONCERNS ABOUT PROCEDURES, PT VERBALIZED UNDERSTANDING.
--- NOTE | 2022-07-19 19:10 | NUR ---
RN notes Received Pt from morning nurse. Pt is in the room awake, calm, friendly and cooperative with plan of care. Pt is alert and orientedX3. Pt denies SI/HI. Reality orientation provided. Informed Pt that Pt is scheduled for CT angio and also informed Pt that Pt is NPO midnight. Pt is aware and verbalize understanding. On room air. No SOB. No S/S of distress noted. Pt is able to ambulates with a steady gait. safety precautions is maintained. Will continue Q 15 mins checks for safety and behavior.
--- NOTE | 2022-07-19 19:15 | NUR ---
RN notes Pt is in dining room and requesting snacks. Pt is eating snacks and having conversation with other Pt. Pt looks happy, smiling and friendly towards staffs and other Pt. Will continue to monitor Q 15 min checks.
[2022-07-19 20:35] VITALS: BP 142/91
[2022-07-19] MEDS ORDERED: risperiDONE-M 0.5 MG TAB.RAPDIS PO SCH ×2 (21:00)
--- NOTE | 2022-07-19 22:41 | NUR ---
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 Input allergy to seafood in the system.
--- NOTE | 2022-07-19 23:00 | NUR ---
RN notes Pt is NPO. Pt verbalize understanding.
--- NOTE | 2022-07-20 03:15 | NUR ---
RN notes Called radiology and spoke with Aurea regarding Pt is scheduled for CT angio in am. Aurea informed that CT angio will be done at 0900 am and informed that Pt is allergy to seafood when he was 39 years ago. Aurea informed to call in am. Charge nurse is aware and informed. will call again in am.
--- NOTE | 2022-07-20 03:21 | NUR ---
RN notes Informed and notify DR. Portillo regarding Pt is scheduled for CT angiogram in am. MD ordered am labs and chest xray. Ordered carry out. Charge nurse is aware and informed.
--- NOTE | 2022-07-20 06:30 | NUR ---
RN notes Pt wants to eat. Informed Pt that CT angiogram requires Pt to be NPO (nothing to eat and drinks). Pt was agree last night. Explained risks and benefits. Pt keep refusing and agitated easily. Spoke with Pt's son Gurjit regarding CT angiogram ordered by . Pt's son talked to Pt on the phone and explained risks and benefits. Pt agree to procedure and nothing to eat and drinks. Pt's son appreciate the info. Will continue to monitor closely.
[2022-07-20 06:51] LABS: BASOPHILS % (AUTO) 0.1 % (0.0-2.0); EOSINOPHILS % (AUTO) 0.1 % (0.0-6.0); HEMATOCRIT 39 % (39-51); HEMOGLOBIN 12.9 g/dL (13.5-17.5); LYMPHOCYTES # (AUTO) 1.3 K/uL (0.8-4.8); LYMPHOCYTES % (AUTO) 12.5 % (20.0-44.0); MEAN CORPUSCULAR HGB CONC 33 g/dl (31.0-36.0); MEAN CORPUSCULAR VOLUME 87 fL (80-96); MONOCYTES # (AUTO) 0.6 K/uL (0.1-1.30); MONOCYTES % (AUTO) 5.6 % (2.0-12.0); NEUTROPHILS # (AUTO) 8.6 K/uL (1.8-8.9); NEUTROPHILS % (AUTO) 81.7 % (43.0-81.0); PLATELET COUNT (AUTO) 196 K/uL (150-450); RED BLOOD CELL COUNT(AUTO) 4.49 MIL/uL (4.5-6.0); WHITE BLOOD COUNT (AUTO) 10.5 K/uL (4.3-11.0)
--- NOTE | 2022-07-20 06:59 | NUR ---
RN notes Called Radiology and spoke with Berenice. Informed Berenice that Pt allergy to seafood when he was 39. Berenice informed to call back and spoke with Tom at 0900 am. Will endorse to am nurse.
--- NOTE | 2022-07-20 07:30 | NUR ---
RN NOTES PT IN BED, ASLEEP, EASY TO AROUSE, ALERT AND ORIENTED, NO BEHAVIOR PROBLEM AT THIS TIME, KEPT INSURANCE AGENCY SALES MANAGER BED.
--- NOTE | 2022-07-20 07:45 | NUR ---
RN notes Pt refuses CT Angiogram. Explained risks and benefits. Pt keep refusing. Charge nurse YOSSI Flores at the bedside. YOSSI Kay is aware and informed.
[2022-07-20 08:00] VITALS: BP 129/87
[2022-07-20] MEDS: AMLODIPINE BESYLATE 5 MG TABLET PO SCH (08:50)
[2022-07-20] MEDS: LITHIUM CARBONATE 150 MG CAPSULE PO SCH ×3 (08:51→16:59)
[2022-07-20] MEDS: ENSURE ENLIVE CHOC 237 ML CAN PO SCH (09:00)
[2022-07-20] MEDS: risperiDONE 1 MG TABLET PO SCH ×3 (12:26→21:28)
[2022-07-20] MEDS ORDERED: OLANZAPINE 10 MG VIAL IM PRN (12:30)
[2022-07-20 16:00] VITALS: BP 132/79
--- NOTE | 2022-07-20 18:40 | NUR ---
RN NOTES PT IN BED, RESTING, DENIES PAIN, NOT IN DISTRESS, CALM AND COOPERATIVE, NO SI AT THIS TIME, FREQUENT CHECKING DONE, KEPT IN SIGHT AT ALL TIMES, NEEDS ATTENDED, ALL MEDS GIVEN.
[2022-07-20 20:36] VITALS: BP 120/80
[2022-07-20] MEDS: TEMAZEPAM 7.5 MG CAPSULE PO PRN (21:30)
[2022-07-21 08:00] VITALS: BP 137/88
[2022-07-21] MEDS: ENSURE ENLIVE CHOC 237 ML CAN PO SCH (08:39)
[2022-07-21] MEDS: AMLODIPINE BESYLATE 5 MG TABLET PO SCH (08:40)
[2022-07-21] MEDS: risperiDONE 1 MG TABLET PO SCH ×4 (08:40→21:17)
[2022-07-21] MEDS: LITHIUM CARBONATE 150 MG CAPSULE PO SCH ×2 (09:53→12:25)
--- NOTE | 2022-07-21 12:32 | NUR ---
RN NOTES PATIENT NOTED TO BE VERY AGITATED , SCREAMING AND YELLING AND TRIED TO THROW THE FOOD TRAY IN THE LEUNG WAY , MADE AWARE AND WITH ORDER OF OLANZAPINE 10 MG INJ IM AND ORDER NOTED AND CARRIED OUT , PATIENT MADE AWARE AND VOLUNTARILY AGREED TO HAVE THE MEDICINATION , GIVEN IM . Addendum: 07/21/22 at 1237 by MARYANA ARROYO RN DISREGARD THIS NOTES ITS A WRONG PATIENT
[2022-07-21 16:00] VITALS: BP 129/82
[2022-07-21] MEDS: LITHIUM CARBONATE (300 MG CAP) 300 MG CAPSULE PO SCH (17:09)
[2022-07-21] MEDS: MECLIZINE HCL 12.5 MG TABLET PO PRN (18:54)
[2022-07-21 20:28] VITALS: BP 117/82
--- NOTE | 2022-07-21 22:30 | NUR ---
RN NOTES PATIENT IS AGITATED AND ASK FOR MEDICINE ATIVAN 0.5MG GIVEN AND TOLERATED BY THE PATIENT WILL CONTINUE TO MONITOR
[2022-07-21] MEDS: LORAZEPAM 0.5 MG TABLET PO PRN (22:34)
[2022-07-22 08:00] VITALS: BP 127/84
[2022-07-22] MEDS: AMLODIPINE BESYLATE 5 MG TABLET PO SCH (08:13)
[2022-07-22] MEDS: risperiDONE 1 MG TABLET PO SCH ×3 (08:13→16:04)
[2022-07-22] MEDS: LITHIUM CARBONATE 150 MG CAPSULE PO SCH ×2 (08:13→12:24)
[2022-07-22] MEDS: ENSURE ENLIVE CHOC 237 ML CAN PO SCH (09:26)
[2022-07-22] MEDS: LORAZEPAM 0.5 MG TABLET PO PRN (10:05)
--- NOTE | 2022-07-22 10:09 | NUR ---
RN-NOTES PATIENT STATED " I'M VERY ANXIOUS AND UNABLE TO CONCENTRATE I NEED MEDICATION". ATIVAN 0.5MG P.O GIVEN PRN ORDER. WILL CONT. MONITORING FOR SAFETY AND BEHAVIOR.
--- NOTE | 2022-07-22 11:10 | NUR ---
RN-NOTES PATIENT IN THE DAY ROOM WATCHING TV.CALM,NO ACUTE DISTRESS NOTED.
--- NOTE | 2022-07-22 13:29 | NUR ---
tamara aparicio rn notified Addendum: 07/22/22 at 1329 by MANOHAR CAMERON RT Amended: Links added.
[2022-07-22 16:00] VITALS: BP 108/70
[2022-07-22] MEDS: LITHIUM CARBONATE (300 MG CAP) 300 MG CAPSULE PO SCH (16:04)
--- NOTE | 2022-07-22 17:52 | NUR ---
RN-NOTES PATIENT IS VISIBLE IN THE UNIT AWAKE,A/O X3 ATTENDED GROUPS ,WATCHING TV.NO ACUTE DISTRESS NOTED.COMPLIANT WITH MEDICATIONS. PATIENT DENIES SI/HI DURING FACE TO FACE ASSESSMENT ABLE TO VERBALIZE FEELINGS AND CONCERN TO THE STAFF.ALL NEEDS ATTENDED AND ANTICIPATED.AMBULATORY STEADY GAIT. WILL CONT. MONITORING FOR SAFETY AND BEHAVIOR. WILL ENDORSE TO INCOMING NURSE FOR THE CONTINUITY OF CARE.
--- NOTE | 2022-07-22 19:48 | NUR ---
RN NOTES: PATIENT RESTING IN HIS ROOM . A/O X3. NO S/SX OF ACUTE DISTRESS NOTED. PARANOID , DISORGNIZED ,GUARDED, EASILY AGITATED,COOPERTIVE WITH CARE, NEEDS FREQUENT REDIRECTIONS AND REORIENTATION. DENIES SI/HI/AV AT THIS TIME. SAFETY PRECAUTIONS MAINTAINED. WILL CONTINUE TO MONITOR Q15MIN ROUNDS FOR SAFETY AND BEHAVIOR.
[2022-07-22 20:00] VITALS: BP 117/79
[2022-07-22] MEDS ORDERED: risperiDONE 1 MG TABLET PO SCH (22:00)
[2022-07-23] MEDS: LORAZEPAM 0.5 MG TABLET PO PRN ×3 (03:17→20:35)
--- NOTE | 2022-07-23 03:20 | NUR ---
RN NOTES: ANXIETY PT. C/O FEELING ANXIOUS,RESTLESS , PRN ATIVAN 0.5 MG PO GIVEN , PER PT. REQUEST WILL CONTINUE TO MONITOR.
[2022-07-23 08:00] VITALS: BP 134/85
[2022-07-23] MEDS: risperiDONE 1 MG TABLET PO SCH ×2 (08:21→16:31)
[2022-07-23] MEDS: LITHIUM CARBONATE 150 MG CAPSULE PO SCH ×2 (08:22→12:41)
[2022-07-23] MEDS: AMLODIPINE BESYLATE 5 MG TABLET PO SCH (08:22)
[2022-07-23] MEDS: ENSURE ENLIVE CHOC 237 ML CAN PO SCH (09:07)
--- NOTE | 2022-07-23 11:12 | NUR ---
RN-NOTES PATIENT STATED " I'M VERY ANXIOUS I NEED MEDICATION". ATIVAN 0.5MG P.O GIVEN PRN ORDER. WILL CONT. MONITORING FOR SAFETY AND BEHAVIOR.
--- NOTE | 2022-07-23 12:15 | NUR ---
RN-NOTES PATIENT IN THE ROOM LYING IN BED AWAKE A/O X3,CALM,NO ACUTE DISTRESS NOTED.
[2022-07-23 16:00] VITALS: BP 109/79
[2022-07-23] MEDS: LITHIUM CARBONATE (300 MG CAP) 300 MG CAPSULE PO SCH (16:31)
--- NOTE | 2022-07-23 17:49 | NUR ---
RN-NOTES PATIENT IS VISIBLE IN THE UNIT AWAKE,A/O X3 CALM ,NO ACUTE DISTRESS NOTED.COMPLIANT WITH MEDICATIONS. PATIENT DENIES SI/HI DURING FACE TO FACE ASSESSMENT ABLE TO VERBALIZE FEELINGS AND CONCERN TO THE STAFF.ALL NEEDS ATTENDED AND ANTICIPATED.AMBULATORY STEADY GAIT. WILL CONT. MONITORING FOR SAFETY AND BEHAVIOR. WILL ENDORSE TO INCOMING NURSE FOR THE CONTINUITY OF CARE.
[2022-07-23 20:00] VITALS: BP 118/73
--- NOTE | 2022-07-23 20:02 | NUR ---
RN NOTES: PATIENT WALKING IN THE HALLWAY . A/O X3. NO S/SX OF ACUTE DISTRESS NOTED. PARANOID , DISORGNIZED ,GUARDED, EASILY AGITATED, PT'S SON VISITED COOPERTIVE WITH CARE, NEEDS FREQUENT REDIRECTIONS AND REORIENTATION. DENIES SI/HI/AV AT THIS TIME. SAFETY PRECAUTIONS MAINTAINED. WILL CONTINUE TO MONITOR Q15MIN ROUNDS FOR SAFETY AND BEHAVIOR.
--- NOTE | 2022-07-23 20:35 | NUR ---
RN NOTES: ANXIETY PT. C/O FEELING ANXIOUS,RESTLESS , PRN ATIVAN 0.5 MG PO GIVEN , PER PT. REQUEST WILL CONTINUE TO MONITOR.
[2022-07-23] MEDS ORDERED: risperiDONE 1 MG TABLET PO SCH (22:00)
[2022-07-24] MEDS: TEMAZEPAM 7.5 MG CAPSULE PO PRN (01:46)
--- NOTE | 2022-07-24 01:47 | NUR ---
RN NOTES: INSOMNIA PT. C/O UNABLE TO SLEEP , PRN RESTORIL 7.5 MG PO GIVEN PER PT. REQUEST, WILL CONTINUE TO MONITOR.
[2022-07-24 08:00] VITALS: BP 105/78
[2022-07-24] MEDS: LITHIUM CARBONATE 150 MG CAPSULE PO SCH ×2 (08:12→13:24)
[2022-07-24] MEDS: ENSURE ENLIVE CHOC 237 ML CAN PO SCH (08:12)
[2022-07-24] MEDS: AMLODIPINE BESYLATE 5 MG TABLET PO SCH (08:12)
[2022-07-24] MEDS: risperiDONE 1 MG TABLET PO SCH ×2 (08:12→20:46)
--- NOTE | 2022-07-24 12:00 | NUR ---
RN-NOTES DR. SHAW IN THE UNIT AND GAVE A VERBAL ORDER TO CHANGE RISPERDAL 1MG P.O TO RISPERDAL 1MG P.O Q12 HR. NOTED AND CARRIED OUT.
[2022-07-24 16:00] VITALS: BP 106/68
[2022-07-24] MEDS: LITHIUM CARBONATE (300 MG CAP) 300 MG CAPSULE PO SCH (16:52)
--- NOTE | 2022-07-24 18:11 | NUR ---
RN-NOTES PATIENT IS VISIBLE IN THE UNIT AWAKE,A/O X3 ,WATCHING TV.NO ACUTE DISTRESS NOTED.COMPLIANT WITH MEDICATIONS. PATIENT DENIES SI/HI DURING FACE TO FACE ASSESSMENT ABLE TO VERBALIZE FEELINGS AND CONCERN TO THE STAFF.ALL NEEDS ATTENDED AND ANTICIPATED.AMBULATORY STEADY GAIT. WILL CONT. MONITORING FOR SAFETY AND BEHAVIOR. WILL ENDORSE TO INCOMING NURSE FOR THE CONTINUITY OF CARE.
[2022-07-24] MEDS: LORAZEPAM 0.5 MG TABLET PO PRN (19:24)
--- NOTE | 2022-07-24 19:25 | NUR ---
RN NOTES: ANXIETY PT. C/O FEELING ANXIOUS,RESTLESS , PARANOID, PRN ATIVAN 0.5 MG PO GIVEN , PER PT. REQUEST WILL CONTINUE TO MONITOR.
[2022-07-24 20:00] VITALS: BP 108/73
--- NOTE | 2022-07-25 07:30 | NUR ---
PT RECEIVED RESTING COMFORTABLY IN BED. NO S/S OR C/O PAIN OR DISTRESS NOTED SIDE RAILS UP X2. WILL CONTINUE PLAN OF CARE.
[2022-07-25 08:00] VITALS: BP 120/82
[2022-07-25] MEDS: AMLODIPINE BESYLATE 5 MG TABLET PO SCH (08:30)
[2022-07-25] MEDS: risperiDONE 1 MG TABLET PO SCH ×2 (08:30→20:41)
[2022-07-25] MEDS: LITHIUM CARBONATE 150 MG CAPSULE PO SCH ×2 (08:30→12:20)
[2022-07-25] MEDS: ENSURE ENLIVE CHOC 237 ML CAN PO SCH (08:31)
--- NOTE | 2022-07-25 13:14 | NUR ---
PT RECEIVED RESTING COMFORTABLY IN BED. NO S/S OR C/O PAIN OR DISTRESS NOTED SIDE RAILS UP X2. WILL CONTINUE PLAN OF CARE. Addendum: 07/25/22 at 1316 by CHINA STOCK RN WRONG TIME
[2022-07-25] MEDS: LORAZEPAM 0.5 MG TABLET PO PRN (15:40)
[2022-07-25 16:00] VITALS: BP 106/82
[2022-07-25] MEDS: LITHIUM CARBONATE (300 MG CAP) 300 MG CAPSULE PO SCH (16:35)
--- NOTE | 2022-07-25 18:26 | NUR ---
CHANGE OF SHIFT REPORT PT RESTING COMFORTABLY IN BED. NO S/S OR C/O PAIN OR DISTRESS NOTED. SIDE RAILS UP X2, CALL LIGHT LEFT WITHIN REACH. PT KEPT CLEAN, DRY, AND COMFORTABLE. NO SIGNIFICANT CHANGES SINCE PREVIOUS SHIFT.
[2022-07-25] MEDS: TEMAZEPAM 7.5 MG CAPSULE PO PRN (20:42)
--- NOTE | 2022-07-25 20:43 | NUR ---
Pt c/o insomnia. Least restrictive measures ineffective. Restoril 7.5 mg po prn given as ordered. Will continue to monitor.
[2022-07-25 21:32] VITALS: BP 103/77
[2022-07-26] MEDS: LORAZEPAM 0.5 MG TABLET PO PRN (02:59)
--- NOTE | 2022-07-26 03:02 | NUR ---
Pt awake and c/o anxiety. Least restrictive measures ineffective. Ativan 0.5 mg po prn given as ordered. Will continue to monitor.
--- NOTE | 2022-07-26 04:05 | NUR ---
Post 1 hr Ativan effective. Pt asleep in bed easy to arouse. Frequent visual check done for safety. Will continue to monitor. Will endorse to next shift.
[2022-07-26 05:58] LABS: BASOPHILS % (AUTO) 0.2 % (0.0-2.0); EOSINOPHILS % (AUTO) 2.3 % (0.0-6.0); HEMATOCRIT 38 % (39-51); HEMOGLOBIN 12.5 g/dL (13.5-17.5); LYMPHOCYTES # (AUTO) 1.4 K/uL (0.8-4.8); MEAN CORPUSCULAR HGB CONC 33 g/dl (31.0-36.0); MEAN CORPUSCULAR VOLUME 87 fL (80-96); MONOCYTES # (AUTO) 0.6 K/uL (0.1-1.30); MONOCYTES % (AUTO) 7.7 % (2.0-12.0); NEUTROPHILS # (AUTO) 5.3 K/uL (1.8-8.9); NEUTROPHILS % (AUTO) 70.8 % (43.0-81.0); PLATELET COUNT (AUTO) 197 K/uL (150-450); RED BLOOD CELL COUNT(AUTO) 4.36 MIL/uL (4.5-6.0); WHITE BLOOD COUNT (AUTO) 7.4 K/uL (4.3-11.0)
[2022-07-26 06:25] LABS: BILIRUBIN,TOTAL 0.4 mg/dL (0.2-1.0); CALCIUM, SERUM 8.7 mg/dL (8.5-10.1); CREATININE 1.1 mg/dL (0.6-1.3); POTASSIUM 3.9 mmol/L (3.5-5.1); TOTAL PROTEIN, SERUM 5.5 g/dL (6.4-8.2)
--- NOTE | 2022-07-26 07:30 | NUR ---
RN OPENING NOTES RECEIVED PATIENT RESTING ON BED AND A/O X3-4, CALM AND COOPERATIVE. ON ROOM AIR TOLERATING WELL. NO SOB NOTED. NOT IN DISTRESS. DENIES SI/HI AT THIS TIME. SAFETY MEASURES IN PLACED, CALL LIGHT WITHIN REACH REACH. BED ON LOWEST LOCKED POSITION, SIDE RAILS UP X2. WILL CONTINUE TO MONITOR.
[2022-07-26 08:00] VITALS: BP 117/84
[2022-07-26] MEDS ORDERED: LITHIUM CARBONATE 150 MG CAPSULE PO SCH (08:00)
[2022-07-26] MEDS: risperiDONE 1 MG TABLET PO SCH (08:46)
[2022-07-26] MEDS: AMLODIPINE BESYLATE 5 MG TABLET PO SCH (08:46)
--- NOTE | 2022-07-26 08:51 | NUR ---
SW Discharge Note: Patient will be discharged to [facility] [address], [place] [address] ([phone]). Please arrange ambulance transportation at 3PM. Spoke with Pamela, Admin Coordinator at the facility who states they are ready to accept the patient today. Patients son Gurjit ([phone]) who is agreeable of dc. Patient is alert and oriented x2. Patient denies any suicidal or homicidal ideation. Patient will follow-up at the facility with Dr. Poole (Psychiatrist) [address], [place] [address]; ([phone])and (Tipping Machine Operator) Dr. Portillo [address], [place] [address]; ([phone]). Patient presents with euthymic mood and congruent affect.
[2022-07-26] MEDS: ENSURE ENLIVE CHOC 237 ML CAN PO SCH (10:09)
[2022-07-26 12:45] VITALS: BP 102/76
--- NOTE | 2022-07-26 14:50 | NUR ---
ELECTRONICS MANUFACTURER NOTE 76 YEAR OLD MALE DISCHARGED TO [facility] IN STABLE CONDITION. COMPLIANT WITH MEDICATIONS, COOPERATIVE TREATMENT PLANS. PATIENT DENIES SI/HI AND INSTRUCTED TO GO TO THE CLOSEST ER IF DEVELOPING SI/HI. BEHAVIOR IMPROVED, PSYCHIATRIC TREATMENT PLANS MET, MEDICAL TREATMENT PLANS DEFERRED FOR CONTINUAL MONITORING. EDUCATED PATIENT ABOUT AFTER CARE PLAN (EXIT-CARE) AND COPY PROVIDED. RETURNED PERSONAL BELONGINGS TO PATIENT. -MEDICATIONS RECONCILED WITH DR. SHWA AND DR. VALDES. -REPORT GIVEN TO YOSSI FLOYD AT [facility]. -PATIENT SIGNED/REFUSED TO SIGN DISCHARGE PAPERWORK. -SKIN IS INTACT. -PATIENT LEFT THE UNIT VIA AMBULANCE IN STABLE CONDITION.
== END 2022-07-26 14:50 | DRG 885 ==
LOC: ER 14:32 → GPS 20:43
PROVIDERS: ADMIT Psychiatry & Neurology Psychosomatic Medicine; ATTEND Internal Medicine
DX: F31.64 Bipolar disorder, current episode mixed, severe, with psychotic features (principal); G93.41 Metabolic encephalopathy; R45.851 Suicidal ideations; I20.0 Unstable angina; F29 Unspecified psychosis not due to a substance or known physiological condition; Z20.822 Contact with and (suspected) exposure to COVID-19; F41.9 Anxiety disorder, unspecified; F19.90 Other psychoactive substance use, unspecified, uncomplicated; I10 Essential (primary) hypertension; R41.9 Unspecified symptoms and signs involving cognitive functions and awareness; Z73.6 Limitation of activities due to disability; Z79.899 Other long term (current) drug therapy; F39 Unspecified mood [affective] disorder; R73.9 Hyperglycemia, unspecified; I45.81 Long QT syndrome
CPT/HCPCS: 36415; 70450-TC; 71045-TC; 80048-TC; 80053-TC; 80061-TC; 80076-TC; 81001; 82962-TC; 83735-TC; 84484-TC; 85025-TC; 85610-TC; 85730-TC; 86850-TC; 87081-TC; 97112-TC; 97116-TC; 97530-TC; C9803; G0480; J0515; J1630; J2060; J3490; J8597